=== PATIENT | female | born 1945 | race Caucasian/White ===

== ENCOUNTER → 2018-08-12 | Outpatient (CLI) | payer MEDICARE, OTHER ==
[~2018-08-12] MED LIST: ACETAMINOPHEN-1 EAC1 PO; ADVAIR HFA115 MCG/21 INH; ALBUTEROL2.5 MG/0.5 INH; ASPIRIN325 PO; ASPIRIN81 M2 PO; ATENOLOL 25 MG25 M1 PO; CEFACLOR ER500 MG PO; CENTRUM SILVER1 EAC1; CENTRUM SILVER1 EAC4 PO; CIPRO500 MG PO; COLACE100 MG PO; DELTASONE20 MG PO; DOXYCYCLINE 10100 MG PO; FLAGYL500 MG PO; FLUCONAZOLE 10100 MG PO; HYDROCODON-ACE1 EAC7 PO; HYDROCODONE-AP1 EAC6 PO; IPRAT-ALBUT 0.5-3 ML INH; LASIX 40 MG TAB40 M2 PO; LIPITOR10 MG PO; LOVASTAT20; NOLVADEX20 MG; NORCO 5-325 TA1 EACH PO; PERFOROMIS20 MCG/2 M IH; PERFOROMIS20 MCG/2 M INH; POTASSIUM20 PO; PREDNISONE 10 M10 MG PO; PULMICORT0.5 MG/2 M INH; REGLAN 10 MG TA10 M1 PO; SIMETHICON CHEW80 M1 PO; VITAMIN D10000 UNIT PO; ZANTAC 150MG T150 M1 PO; ZANTAC 150MG T150 MG PO; ZOFRAN 4 MG ORAL4 MG PO; ZYRTEC10 M2
[2018-08-12 08:45] LABS: CREATININE 0.9 mg/dL (0.6-1.3)
== END ==
LOC: M.LAB 08:19 → M.CT 09:00
DX: I71.4 Abdominal aortic aneurysm, without rupture (principal); J43.9 Emphysema, unspecified; R91.1 Solitary pulmonary nodule; J98.11 Atelectasis; I70.0 Atherosclerosis of aorta; I70.8 Atherosclerosis of other arteries; Z88.1 Allergy status to other antibiotic agents; Z88.8 Allergy status to other drugs, medicaments and biological substances; Z90.710 Acquired absence of both cervix and uterus

== ENCOUNTER 2018-12-18 10:06 | Inpatient (IN) | payer MEDICARE, OTHER ==
[~2018-12-18] VITALS: Ht 165.1 cm; Wt 53.5 kg
[2018-12-18 10:06] VITALS: BP 92/55
[2018-12-18] MEDS ORDERED: CENTRUM SILVER1 EAC4 PO (10:19)
[2018-12-18] MEDS ORDERED: ZANTAC 150MG T150 MG PO (10:20)
[2018-12-18 10:38] LABS: BE 10.4 mmol/L (-2 to +3); PCO2 49.9 mmHg (35.0-45.0); pH 7.471 (7.340-7.450)
[2018-12-18 10:40] LABS: PO2 53.7 mmHg (75.0-100.0)
[2018-12-18 10:43] LABS: HEMATOCRIT 36.2 % (37.0-47.0); HEMOGLOBIN 11.8 gm/dL (12.0-15.0); MCH 30.5 pg (26.0-34.0); MCHC 32.7 g/dL (28.0-37.0); MCV 93.2 fL (80.0-100.0); MPV 9.3 fl. (7.2-11.1); NUCLEATED RBCS 0 /100WBC; PLATELET COUNT* 208 thou/uL (150-400); RBC 3.88 mil/uL (4.20-5.00); RDW-CV 17.2 % (10.5-14.5); WBC 10.7 thou/uL (4.0-11.0)
[2018-12-18 10:51] LABS: ANION GAP 3 mmol/L (7-16); BUN 19 mg/dL (7-18); CALCIUM 11.4 mg/dL (8.5-10.1); CHLORIDE 97 mmol/L (98-107); CO2 36 mmol/L (21-32); CREATININE 0.8 mg/dL (0.6-1.3); GLUCOSE 93 mg/dL (70-99); POTASSIUM 3.7 mmol/L (3.5-5.1); SODIUM 136 mmol/L (136-145)
[2018-12-18 10:53] LABS: INR 1.2; PROTIME 12.1 Seconds (9.20-11.50)
[2018-12-18 10:58] LABS: ABSOLUTE LYMPHOCYTES 0.5 thou/uL (0.8-5.3); ABSOLUTE MONOCYTES 0.5 thou/uL (0.0-1.2); ABSOLUTE NEUTROPHILS 9.6 thou/uL (1.6-8.1); ANISOCYTOSIS 1+; PLATELET ESTIMATE ADEQUATE; POIKILOCYTOSIS 1+
[2018-12-18 11:02] LABS: ALBUMIN 2.4 g/dL (3.4-5.0); ALKALINE PHOSPHATASE 141 U/L (46-116); MAGNESIUM 1.6 mg/dL (1.8-2.4); NT-PRO BRAIN NAT PEPTIDE 8321 pg/mL (<300); SGOT 61 U/L (15-37); SGPT 22 U/L (30-65); TOTAL PROTEIN 8.6 g/dL (6.4-8.2); TROPONIN-I LEVEL <0.06 ng/mL (<0.06)
[2018-12-18 13:30] VITALS: BP 128/73
[2018-12-18 14:06] VITALS: BP 119/87
--- NOTE | 2018-12-18 16:30 | NUR ---
WOUND CARE NOTE: WAS REQUESTED TO SEE PATIENT BY PATIENT'S RN. PATIENT PRESENTS WITH UNSTAGEABLE PRESSURE ULCERS TO THE SACRUM AND COCCYX. FAMILY MEMBER IN ROOM ADMITS THAT PATIENT SITS A LOT OF THE TIME. FAMILY MEMBER STATES THEY CLEAN IT WITH PEROXIDE THEN APPLY NEOSPORIN AND COVER WITH A BANDAID. EDUCATED FAMILY MEMBER THAT THESE ARE CAUSED BY PRESSURE AND WE HAVE TO OFFLOAD TO ASSIST WITH WOUND HEALING, COMMUNICATED UNDERSTANDING BUT VOICED CONCERNS THAT IF SHE LAYS ON HER SIDE TOO LONG SHE WILL GET 'CLOGGED UP'. EDUCATED THAT WE COULD ROTATE FROM SIDE TO SIDE AND LIMIT TIME ON HER WOUNDS, COMMUNICATED UNDERSTANDING. SACRUM: UNSTAGEABLE PRESSURE ULCER MEASURING 1X2X0.1. 100% OF WOUND BED COVERED WITH YELLOW, MOIST, ADHERENT SLOUGH. HERI-WOUND WITH INFLAMMATION. COCCYX: UNSTAGEABLE PRESSURE ULCER MEASURING 1.5X2.5X0.1. 100% OF WOUND BED COVERED WITH YELLOW, MOIST, ADHERENT SLOUGH. HERI-WOUND WITH INFLAMMATION. APPLIED SKIN PREP TO HERI-WOUND. APPLIED AQUACEL AG TO WOUND BEDS AND COVERED WITH BORDERED FOAM. PATIENT TOLERATED DRESSING CHANGES WELL. RECOMMEND TURN Q2 HOURS-KEEP OFF WOUNDS ENCOURAGE GOOD NUTRTION/HYDRATION WAFFLE CUSHION WHEN IN CHAIR
--- NOTE | 2018-12-18 16:57 | 2DMMODE ---
[place] [address] 2 D/M-MODE ECHOCARDIOGRAM Name: MELY PALACIOS Room: [address] ADM IN [facility]#: [id number] Admission: 12/18/18 Attend Phys: Wilson Sands Discharge: Date of : 45 Date of Service: 12/18/18 1656 Report #: [id number] THIS REPORT FOR: //name// APPROVED REPORT Study performed: 12/18/2018 15:43:59 EXAM: Comprehensive 2D, Doppler, and color-flow Echocardiogram Patient Location: In-Patient Room #: Counts include 234 beds at the [facility] Status: routine BSA: 1.53 HR: 94 bpm BP: 119/87 mmHg Rhythm: NSR Other Information Study Quality: Good Indications COPD Dyspnea 2D Dimensions IVSd: 11.51 (7-11mm) LVOT Diam: 19.65 (18-24mm) LVDd: 35.09 mm PWd: 8.40 (7-11mm) Ascending Ao: 30.41 (22-36mm) LVDs: 23.41 (25-40mm) Aortic Root: 30.69 mm Aortic Valve AoV Peak Justice.: 1.07 m/s AO Peak Gr.: 4.57 mmHg LVOT Max P.39 mmHg AO Mean Gr.: 2.62 mmHg LVOT Mean P.61 mmHg LVOT Max V: 0.59 m/s AO V2 VTI: 16.64 cm LVOT Mean V: 0.35 m/s ANU (VTI): 1.80 cm2 LVOT V1 VTI: 9.86 cm Mitral Valve E/A Ratio: 0.78 MV Decel. Time: 163.68 ms MV E Max Justice.: 0.53 m/s MV PHT: 47.47 ms MVA (PHT): 4.63 [place] [address] 2 D/M-MODE ECHOCARDIOGRAM Name: MELY PALACIOS Room: [address] IN .R.#: [id number] Admission: 12/18/18 Attend Phys: Wilson Sands Discharge: Date of : 45 Date of Service: 12/18/18 1656 Report #: [id number] TDI E/Lateral E': 5.30 E/Medial E': 4.82 Medial E' Justice.: 0.11 m/s Lateral E' Justice.: 0.10 m/s Pulmonary Valve PV Peak Justice.: 0.86 m/s PV Peak Gr.: 2.98 mmHg Tricuspid Valve RAP Estimate: 15.00 mmHg TR Peak Gr.: 59.16 mmHg RVSP: 74.00 mmHg PA Pressure: 74.00 mmHg Left Ventricle The left ventricle is normal size. There is normal LV segmental wall motion. There is normal left ventricular wall thickness. Left ventricular systolic function is normal. The left ventricular ejection fraction is within the normal range. LVEF is 55%. Grade I - abnormal relaxation pattern. Right Ventricle Right ventricle is moderate to severely dilated. The right ventricular systolic function is normal. Atria The left atrium size is normal. Right atrium is severely dilated. Aortic Valve Mild aortic valve sclerosis. No aortic regurgitation is present. There is no aortic valvular stenosis. Mitral Valve The mitral valve is normal in structure. There is no mitral valve regurgitation noted. No evidence of mitral valve stenosis. Tricuspid Valve The tricuspid valve is normal in structure. Moderate to severe tricuspid regurgitation. Moderate pulmonary hypertension. Moderate to severe tricuspid regurgitation. Pulmonic Valve The pulmonary valve is normal in structure. There is no pulmonic valvular regurgitation[place] [address] 2 D/M-MODE ECHOCARDIOGRAM Name: MELY PALACIOS Room: [address] IN [facility].#: [id number] Admission: 12/18/18 Attend Phys: Wilson Sands Discharge: Date of : 45 Date of Service: 12/18/18 1656 Report #: [id number] The aortic root is normal in size. IVC is dilated and collapses <50% with inspiration. Pericardium There is no pericardial effusion. <Conclusion> The left ventricle is normal size. There is normal left ventricular wall thickness. Left ventricular systolic function is normal. The left ventricular ejection fraction is within the normal range. LVEF is 55%. Grade I - abnormal relaxation pattern. Right ventricle is moderate to severely dilated. The left atrium size is normal. Right atrium is severely dilated. Mild aortic valve sclerosis. No aortic regurgitation is present. There is no aortic valvular stenosis. The mitral valve is normal in structure. The tricuspid valve is normal in structure. Moderate to severe tricuspid regurgitation. Moderate pulmonary hypertension. IVC is dilated and collapses <50% with inspiration. There is no pericardial effusion. There is normal LV segmental wall motion. <ELECTRONICALLY SIGNED> By: Percy Griffiths MD, FACC 12/18/18 1656 55 55 Percy Griffiths MD, FACC /INF
--- NOTE | 2018-12-18 18:28 | NUR ---
VSS, ASSUMED CARE IN THE AM, ASSESSMENT PERFROEMD AND CHARTED, FALL PRECAUTIONS IN PLACE AND CALL LIGHT IN REACH, PT IS A&O4 PT IS ON 4L NC AND IS UP WITH TWO, PT IS A Q2 GARCÍAEN, FAMILY AT BEDSIDE AND HER GOAL IS TO IMPROVE BREATHING, HOURLY ROUNDS COMPLETED.
[2018-12-18 20:00] VITALS: BP 107/66
[2018-12-19] VITALS: BP 107/59
--- NOTE | 2018-12-19 03:46 | NUR ---
PT ALERT ORIENTED. UP TO BSC WITH ASSIST OF ONE. NPO AT NE. FOR CT AND BONE SCAN AND BX. O2 INITALLY AT 5 LITERS NC 88% TITRATED UP TO 6 LITERS NC. O2 SATS NOW IN MID 90S. TURN Q 2 HRS. NS W 40MEQ KCL NOT RUNNING AT INITAL ASSESSMENT. IVF NS 40KCL RUNNING AT 50MLS/HR. TELEMETRY SHOWS SR 1ST DEGREE AVB AT NE. SACRAL DRSG INTACT.
[2018-12-19 04:00] VITALS: BP 109/68
[2018-12-19 08:00] VITALS: BP 98/63
--- NOTE | 2018-12-19 09:20 | EKG ---
[place] [address] ELECTROCARDIOGRAM REPORT Name: MELY PALACIOS Room: [address] ADM IN M.R.#: [id number] Admission: 12/18/18 Attend Phys: Nikki Baer Discharge: Date of : 45 Report #: [id number] THIS REPORT FOR: //name// [facility] ED Test Date: 2018-12-18 Test Time: 10:21:50 Pat Name: MELY PALACIOS Department: Room: [address] Gender: F Manager Construction: : 1945 Requested By: Alice Blanchard Order Number: [id number] MD: Ra Mendez Measurements Intervals [place] Rate: 99 P: 81 KS: 152 QRS: 133 QRSD: 92 T: -39 QT: 360 QTc: 462 Interpretive Statements Sinus rhythm Right axis deviation Consider right atrial enlargement Incomplete right bundle-branch block Borderline T abnormalities, inferior leads Compared to ECG 05/10/2018 19:31:18 T-wave abnormality now present Electronically Signed On 12-19-2018 9:19:54 CDT by Ra Mendez [email or web address] <ELECTRONICALLY SIGNED> By: Ra Mendez MD, FACC 12/19/18 0919 1021 1021 Ra Mendez MD, [facility] /EPI
--- NOTE | 2018-12-19 12:19 | CON ---
[address] [address] CONSULTATION Name: MELY PALACIOS Room: [address] IN M.R.#: [id number] Admission: 12/18/18 Attend Phys: Nikki Baer Discharge: Date of : 45 Report #: [id number] THIS REPORT FOR: //name// CC: Gabriele Gloriajeannie Wilson Sands DATE OF SERVICE: 12/18/2018 INPATIENT CONSULTATION REASON FOR CONSULTATION: Lung mass. SUBJECTIVE: A 73-year-old female, who has been a heavy smoker, had COPD, presented because of shortness of breath. The patient had worsening difficulty breathing; however, she has been bedridden due to her severe COPD. She has been on 4 liters of oxygen. The patient denies any chest pain or nausea and vomiting. She has been having weight loss. Upon evaluation at the Emergency Room, the patient underwent CT angiogram, which showed left chest wall mass with destruction of the adjacent rib concerning of metastatic disease. The patient reported that she had breast cancer back 13 years ago, treated by Dr. Mathew. Underwent lumpectomy followed by chemotherapy and endocrine treatment for 7 years. The patient also had radiation prior to that. REVIEW OF SYSTEMS: All systems were reviewed. It was negative except the above. MEDICATIONS: Per admission list. ALLERGIES: PENICILLIN, ERYTHROMYCIN, AZITHROMYCIN, LEVOTHYROXINE. PAST MEDICAL HISTORY: History of breast cancer, COPD, hypertension, and peptic ulcer disease. PAST SURGICAL HISTORY: Appendectomy, lumpectomy, hemorrhoid surgery, , tonsillectomy. SOCIAL HISTORY: The patient is an active smoker, around less than 1 pack for more than 60 years. No alcohol or drug abuse. FAMILY HISTORY: Noncontributory. PHYSICAL EXAMINATION: VITAL SIGNS: Today, temperature 37.0, pulse 98, respirations 20, blood pressure is 119/87, SpO2 is 94% on 4 liters. GENERAL: The patient was lying in bed. She looked very cachectic and tired. LUNGS: [place] [id number] CONSULTATION Name: MELY PALACIOS Room: [address] IN [facility].#: [id number] Admission: 12/18/18 Attend Phys: Nikki Baer Discharge: Date of : 45 Report #: [id number] HEART: Regular rate and rhythm, S1, S2, within normal limits. ABDOMEN: Soft, nontender. EXTREMITIES: +2 edema bilaterally. LABORATORY DATA: Today, WBC 10.7, hemoglobin 11.8, platelets 208. Sodium is 137, potassium is 3.7, creatinine is 0.8, magnesium is 1.6. ALT is 61, AST 21, alk phos is 141. IMAGING: CT angiogram showed no PE, extensive emphysema, left chest wall mass with destruction of the adjacent rib and the anterior wall. ASSESSMENT AND PLAN: A 73-year-old female, who has been a heavy smoker, has a prior history of breast cancer as mentioned above. The patient is presenting with incidental findings of left chest wall mass, very suspicious of malignancy process. Differential diagnosis could be breast cancer or lung cancer, which is less likely. RECOMMENDATIONS: I will obtain a CT scan of the abdomen and pelvis ___without___ contrast and bone scan to staging. I discussed with the patient and she would like to know her diagnosis, whether it is lung versus breast. We will ask Interventional Radiology to evaluate for biopsy. The patient has been high risk since she has severe COPD. Plan was discussed with the patient. I would like also to obtain CA 27-29. <ELECTRONICALLY SIGNED> By: Larry Stcokton MD 12/19/18 1219 1721 [id number] Stockton MD /nt
[2018-12-19 12:22] VITALS: BP 115/77
--- NOTE | 2018-12-19 16:26 | NUR ---
SW met with pt, pt , pt dtr, pt son, pt friend. Pt alert, oriented. Pt lives at home with family and pt son is main caregiver during the day, pt provides assistance at night if needed. Pt continues to have oxygen and nebulizer through [employer]. Pt does not have hx of or SNF. SW to continue to follow to assist with safe dc planning.
[2018-12-19 16:50] VITALS: BP 109/66
--- NOTE | 2018-12-19 18:34 | NUR ---
VSS, ASSUMED CARE IN THE AM, ASSESSMENT PERFORMED AND CHARTED, FALL PRECAUTIONS IN PLACE AND CALL LIGHT IN REACH, PT IS ON 4 TO 6 L NC SHE IS UP WITH ONE TO BSC, TRACING SR.ST ON THE MONITOR, PT GOAL IS TO COMPLETE BONE SCAN, AND CT OF ABD, PT DENIES ANY PAIN IS A Q2 TURN, AND HAS PRESSUR ULCER ON BUTT, HOURLY ROUNDS COMPLETE, WILL FOLLOW WITH PLAN OF CARE,
[2018-12-19 20:10] VITALS: BP 118/73
[2018-12-20] VITALS (15 sets, daily range): BP systolic 128–154; BP diastolic 64–87
[2018-12-20 04:09] LABS: HEMATOCRIT 35.3 % (37.0-47.0); HEMOGLOBIN 11.2 gm/dL (12.0-15.0); MCH 30.4 pg (26.0-34.0); MCHC 31.6 g/dL (28.0-37.0); MCV 96.2 fL (80.0-100.0); MPV 9.2 fl. (7.2-11.1); RBC 3.67 mil/uL (4.20-5.00); RDW-CV 17.6 % (10.5-14.5)
[2018-12-20 04:45] LABS: INR 1.1; PROTIME 11.5 Seconds (9.20-11.50)
[2018-12-20 04:46] LABS: ALBUMIN 2.4 g/dL (3.4-5.0); CALCIUM 10.6 mg/dL (8.5-10.1); CREATININE 0.7 mg/dL (0.6-1.3); MAGNESIUM 1.7 mg/dL (1.8-2.4); POTASSIUM 3.7 mmol/L (3.5-5.1); TOTAL BILIRUBIN 0.4 mg/dL (<0.1-1.0); TOTAL PROTEIN 7.8 g/dL (6.4-8.2)
--- NOTE | 2018-12-20 05:06 | NUR ---
ASSUMED CARE OF PT AT 1900. PT IS ALERT AND ORIENTED. VSS. PERRLA. PT IS IN SINUS RTYHM ON THE TELEMETRY. PT IS RESTING COMFORTABLY IN BED. RESPIRATIONS ARE EVEN AND NONLABORED. WILL CONTINUE TO MONITOR PT.
--- NOTE | 2018-12-20 08:40 | CON ---
[address] [address] CONSULTATION Name: MELY PALACIOS Room: [address] ADM IN M.R.#: [id number] Admission: 12/18/18 Attend Phys: Nikki Baer Discharge: Date of : 45 Report #: [id number] THIS REPORT FOR: //name// CC: Larry Betancourt DO DATE OF SERVICE: 12/19/2018 PULMONARY CONSULTATION ATTENDING PHYSICIAN: Wilson Sands DO PRIMARY CARE PHYSICIAN: Gabriele Nino DO ONCOLOGIST: Larry Stockton MD LOCATION: She is located in room #223. INDICATION FOR CONSULTATION: Severe COPD, severe emphysema, and left chest wall mass, possible liver mass. HISTORY OF PRESENT ILLNESS: The patient is a 73-year-old female, current heavy smoker, presented to the Emergency Department yesterday via ambulance with complaints of shortness of breath. She has had cough with wheezing. Denies hemoptysis. She has been losing weight. She has been more short of breath. She has significant kyphosis. She basically is chair bound. She has to get up and have a help to go to the bathroom. She has had a pressure sore on her tailbone region for the last several weeks. She has had some lower leg swelling. CT of the chest did not reveal any pulmonary emboli. She has severe COPD with emphysema with significant emphysematous changes in the left chest wall mass around her left 8th and 9th rib with some lytic rib lesions and lingular consolidation. She may have a left chest wall biopsy. She has a remote history of breast CA from about 13 years ago with no evidence of recurrence at least at this time. Still smoking about a pack or two of cigarettes a day. PAST MEDICAL HISTORY: History of severe COPD. She has been oxygen dependent for the last 4-5 years. She has had chronic dyspnea and fatigue. She has kyphosis and restrictive lung disease. She thinks she has lost 3-4 inches in height over the last several years and she has had chronic abdominal pain, some fluid overload, and weakness noted. ALLERGIES: SHE HAS MULTIPLE ALLERGIES TO LEVOFLOXACIN, [place] [address] CONSULTATION Name: MELY PALACIOS Room: [address] IN [facility].#: [id number] Admission: 12/18/18 Attend Phys: Nikki Baer Discharge: Date of : 45 Report #: [id number] WITH ITCHING, AZITHROMYCIN GIVES HER NAUSEA, AND PENICILLIN GIVES HER NAUSEA. OUTPATIENT MEDICATIONS: At home, she is supposed to be on DuoNeb treatments 4 times a day followed by budesonide 0.5 mg b.i.d., was on a prednisone taper that was back in May and she had finished that taper. In the hospital, she is on IV Solu-Medrol and oral montelukast, also has received some pain medicines. PAST SURGICAL HISTORY: Again, prior lumpectomy in 2007 for breast cancer with adenocarcinoma and 1/5 lymph nodes positive. I believe she had chemotherapy and then was estrogen positive and received some hormonal therapy after that. 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 FAMILY HISTORY: Father with vascular disease and stroke. Mother had Alzheimer disease. SOCIAL HISTORY: Current 2-pack a day smoker for about 56 pack years. Denies any alcohol or illicit drug use. REVIEW OF SYSTEMS: A 14-point review of systems was attempted. EYES, EARS, NOSE AND THROAT: Occasional headaches. RESPIRATORY: COPD, smoking, and shortness of air. CARDIOVASCULAR: Denies chest pain or palpitations. GASTROINTESTINAL: Some abdominal pain and chest wall pain. GENITOURINARY: She has urgency at home. MUSCULOSKELETAL: Has back and chest wall pain. SKIN: No rash or bruising. NEUROLOGIC: Unremarkable 14-point review of systems was noted as above. CONSTITUTIONAL: She has lost weight also for constitutional, but no night sweats. PHYSICAL EXAMINATION: GENERAL: Thin, cachectic 73-year-old female, who is kyphotic in bed. She can barely sit up on her own. VITAL SIGNS: Blood pressure is 100/60 on no pressors, heart rate 88, respirations 16, temperature is 36.7, saturation on 4 liters is 89-90%, 6 liters she is 93. She is 5 feet 3 inches tall, weight 54 kilograms or 112 pounds, BMI is 19. NECK: Supple without nodes. Hypertrophied sternocleidomastoid muscle. No cervical or supraclavicular adenopathy. Pharynx is clear. CHEST: Shows some moderate kyphosis in cervical and thoracic area with limited range of motion of her neck. Diminished breath sounds, prolonged expiratory phase and expiratory wheezes noted bilaterally. She is hyperinflated. CARDIOVASCULAR: Shows diminished heart tones, regular rate and rhythm. Heart rate is 88. [address] [address] CONSULTATION Name: MELY PALACIOS Room: [address] IN [facility].#: [id number] Admission: 12/18/18 Attend Phys: Nikki Baer Discharge: Date of : 45 Report #: [id number] ABDOMEN: Soft. There may be some left chest wall tenderness on her left 8th and 9th ribs, just above her spleen, possible chest wall mass there. No ulcerating lesions noted. ABDOMEN: Soft and she has a pressure ulcer necrosis on her coccyx. EXTREMITIES: Show trace edema. No cyanosis or clubbing. NEUROLOGIC: Moves all fours albeit somewhat weakly to commands. LABORATORY DATA: From yesterday, hemoglobin is 12, white count is 10,700, and platelets are 208,000, normal differential. Sodium is 136, potassium is 3.7, bicarbonate is elevated at 36, BUN is 19, creatinine is 0.8, glucose 93, calcium is high at 11.4 and magnesium is 1.6, which is low. AST and ALT are slightly elevated at 61 and 22. Alkaline phosphatase elevated to 141. Anti-proBNP is elevated at 8321. Albumin is 2.4. ABGs on 4 liters showed pO2 of 54, pH 7.47, pCO2 is 49, bicarbonate is 36, sats 86%, and carboxyhemoglobin was elevated at 2.7% correlating with increased cigarette use at home. Chest x-ray, CT of the chest shows lingular consolidation, left chest wall lesion with lytic rib lesion around the left eighth and ninth ribs anteriorly with 2 x 7 cm longitudinal type lesion. Severe emphysema is noted on CT of the chest, no pulmonary emboli, possible right liver lesion. Repeat CT abdomen is pending today. IMPRESSION: 1. Most likely stage 4 carcinoma either recurrent breast carcinoma or primary lung carcinoma with a rib lesion. 2. Severe chronic obstructive pulmonary disease with emphysema, oxygen dependent. 3. Protein-calorie malnutrition and fatigue, chair bound. 4. Severe kyphoscoliosis with restrictive lung disease, CO2 retention. 5. History of breast cancer, adenocarcinoma with previous 1/5 lymph nodes positive, possible recurrence. PLAN: Await either CT biopsy of the chest wall or maybe liver biopsy of the right lobe of the liver if that ends up being positive on CT of the abdomen. Needed tissue diagnosis. I do not think she would tolerate bronchoscopy well. Keep her on steroids and oral bronchodilators, nebulizers, and see if we can improve her lung function. She does not seem interested in discontinuing smoking, although I have advised her to do so. We will continue current therapy, then Oncology will follow up after the biopsy, and see if she would either tolerate immunotherapy or possibly hormonal therapy for breast cancer. I will see where she goes from there, keep her on 4 liters, may have to recheck blood gas at some point in time to see how her CO2 retention is doing. Currently, she is a full code blue, may need to revisit that at some point in time. I think she would do poorly on the ventilator and may need to look into advance directives and durable power of commercial attorney. Prognosis quite guarded at this time even from her COPD alone. At some point in time, some spirometry and PFTs if she would cooperate. [address] [place] [address] CONSULTATION Name: MELY PALACIOS Room: [address] IN M.R.#: [id number] Admission: 12/18/18 Attend Phys: Nikki Baer Discharge: Date of : 45 Report #: [id number] Thanks again for allowing us to participate in this lady's care. We will follow up along with you. <ELECTRONICALLY SIGNED> By: Evert Stock MD 12/20/18 0840 1057 [id number] Stock MD /nt
--- NOTE | 2018-12-20 10:41 | NUR ---
ASSUMED PT CARE AT 0800, AOX4, UP SBA, O2 SAT 90'S 4L NC. TRACING SR ON TELE. PT DENIES PAIN. PT NPO FOR LIVER BIOPSY. LAST BM TODAY. IV ACCESS INTACT. VSS, AM ASSESSMENT CHARTED. HOURLY ROUNDING, CALL LIGHT WITHIN REACH. WILL CONTINUE TO MONITOR.
[2018-12-20 17:24] LABS: CALCIUM 11.5 mg/dL (8.5-10.1); MAGNESIUM 1.7 mg/dL (1.8-2.4); POTASSIUM 3.9 mmol/L (3.5-5.1)
[2018-12-21] VITALS: BP 133/86
[2018-12-21 04:00] VITALS: BP 149/85
--- NOTE | 2018-12-21 04:42 | NUR ---
ASSUMED CARE OF PT AT 1900. PT IS ALERT AND ORIENTED. VSS. PERRLA. NO COMPLAINTS OF PAIN. PT IS IN SINUS RYTHM ON THE TELEMETRY. PT IS RESTING COMFORTABLY IN BED. RESPIRATIONS ARE EVEN AND NONLABORED. WILL CONTINUE TO MONITOR PT.
[2018-12-21 04:44] LABS: HEMATOCRIT 37.1 % (37.0-47.0); HEMOGLOBIN 11.7 gm/dL (12.0-15.0); MCH 30.7 pg (26.0-34.0); MCHC 31.5 g/dL (28.0-37.0); MCV 97.3 fL (80.0-100.0); MPV 9.2 fl. (7.2-11.1); RBC 3.81 mil/uL (4.20-5.00); RDW-CV 17.9 % (10.5-14.5); WBC 7.9 thou/uL (4.0-11.0)
[2018-12-21 04:53] LABS: ALBUMIN 2.6 g/dL (3.4-5.0); CALCIUM 10.8 mg/dL (8.5-10.1); MAGNESIUM 1.6 mg/dL (1.8-2.4); POTASSIUM 3.8 mmol/L (3.5-5.1); TOTAL BILIRUBIN 0.5 mg/dL (<0.1-1.0); TOTAL PROTEIN 8.1 g/dL (6.4-8.2)
[2018-12-21 07:55] VITALS: BP 155/86
--- NOTE | 2018-12-21 09:20 | NUR ---
ASSUMED CARE OF PT AT 0730. PT RESTING IN BED WAITING FOR BREAKFAST. PT A&0X4, FORGETFUL AT TIMES. PT COMPLAINS OF GENERALIZED PAIN. TREATED WITH PRN TRAMADOL WITH RELIEF. PT TRACING SR ON THE SHERIFFS. ON 6L NC SAT UPPER 90'S. PT UP WITH 1 ASSIST TO BATHROOM. IVF. PT GOAL FOR TODAY IS REPLACE MAGNESIUM PER ELECTROLYTE PROTOCOL, TITRATE OXYGEN, WOUND CARE AND INCREASE ACTIVITY. AM ASSESSMENT CHARTED. MEDICATIONS PER JUL. PT REPOSITIONED EVERY 2 HOURS FOR COMFORT. HOURLY ROUNDING OBSERVED. BED IN LOW POSITION. BED ALARM IN PLACE. FALL PRECAUTIONS IN PLACE. CALL LIGHT WITHIN REACH. WILL CONTINUE PLAN OF CARE.
[2018-12-21 12:30] VITALS: BP 145/82
[2018-12-21] MEDS ORDERED: SINGULAIR 10 MG10 M1 PO (14:57)
[2018-12-21] MEDS ORDERED: PREDNISONE 20 M20 MG PO (14:59)
[2018-12-21] MEDS ORDERED: PEPCID20 MG PO (15:00)
[2018-12-21] MEDS ORDERED: IPRAT-ALBUT 0.5-3 ML INH (15:01)
[2018-12-21] MEDS ORDERED: ZANTAC 150MG T150 MG PO (15:03)
--- NOTE | 2018-12-21 15:15 | NUR ---
WAS ASKED TO SEE PT TO ARRANGE HH AND POSSIBLE O2 1OL CONCENTRATOR. DISCUSSED WITH DR ROBERTS. MET WITH PT, SPOUSE/MEHDI AND HIS SON TO DISCUSS. PT WANTING TO GO HOME TODAY. THEY WERE UNSURE WHAT LITER FLOW THEIR HOME CONCENTRATOR WENT TO. MEHDI WENT HOME TO CHECK AND IT WAS 5L. PT DR ROBERTS, NEEDED A 10L CONC HE O2 FLOW IS 4L NOW BUT WAS HIGHER EARLIER TODAY. WAS ABLE TO GET ORDER AND ARRANGE FOR 10L CONC TO BE DELIVERED BY HER DME CO[facility] TODAY. [facility]UAN ALB[facility] CALLED PT AND SPOUSE TO ARRANGE TIME TO DELIVER THIS AFTERNOON. PT HAS O2 TANK TO GET HOME WITH IN CAR. SPOUSE TO TAKE PT HOME. DISCUSSED HH OPTIONS, SHE HAD NO PREFERENCE AND STATED SHE HAD HEARD OF [facility], CALLED AND SET UP HH TO START TOMORROW THRU [facility]. PT CONFIRMED SHE HAS THE FOLLOWING EQUIPMENT AT HOME: O2, NEBULIZER, W/C, WALKER, CANE, BSC, O2 SAT MONITOR, AND RECLINER SHE SLEEPS IN. STATED DIDN'T WANT HOPSITAL BED. NO OTHER NEEDS ID'D. DISCUSSED WITH ENOC GONZALEZ
--- NOTE | 2018-12-21 17:57 | NUR ---
DISCHARGE ORDERS RECEIVED FOR PT TO BE DISCHARGED HOME WITH HOME HEALTH. DISCHARGE INSTRUCTIONS, CARE NOTES, SCRIPTS AND FOLLOW UP APPTS GIVEN TO PT. PT COMMUNICATES UNDERSTANDING OF DISCHARGE TEACHING. IV AND CHILD CARE NURSE REMOVED. PT DISCHARGED WITH ALL BELONGINGS AND PAPERWORK VIA WHEELCHAIR WITH NURSING STAFF TO FI[facility] OWN PERSONAL VEHICLE. WOUND CARE GIVEN AND DISCHARGE PHOTOS TAKEN AND PLACED IN CHART
--- NOTE | 2018-12-25 15:07 | PATH ---
[address] [address] PATHOLOGY RPT PROCEDURE Name: SAMANTHA PALACIOS Room: [address] IN M.R.#: [id number] Admission: 12/18/18 Date of : 45 Discharge: 12/21/18 Report #: [id number] Path Case #: [id number] [facility] Accession Number: [id number] . 01 Material submitted: . liver - LIVER BIOPSY . 01 Clinical history: . Liver mass 1.8 x 1.9 x 1.9 cm . 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 SEE COMMENT. LBQ/12/24/2018 . 02 Comment: Each of the cores shows liver involvement by infiltrating nests of malignant cells seen focally to show gland/duct formation and associated with a desmoplastic stromal response. The uninvolved liver tissue including portal tracts does not show dysplastic features. A panel of properly controlled immunohistochemical stains performed on A1 and A2 show the following results, supporting the diagnosis: . GCDFP Negative TTF-1 Negative Napsin Negative Estrogen receptor Negative Mammaglobin Negative CHAVEZ-3 Positive CK7 Negative CK20 Negative CDX2 Negative . These findings best support a breast ductal primary and lung and colorectal primaries are unlikely. Per discussion of the findings with Dr. Wilkins at approximately 0955 on 12/24/2018, it is determined that a progesterone receptor stain will also be attempted and will be the subject of an addendum report. Reviewed with Dr. Mahsa Hammonds who agrees with the diagnosis. (TRELL/db; 12/24/2018) . 02 Addendum: . At the request of Dr. Wilkins, a progesterone receptor immunohistochemical stain is performed (A2) and is negative. A keratin THOMAS stain is also performed and highlights the malignant cells [place] the [place] [address] PATHOLOGY RPT PROCEDURE Name: SAMANTHA PALACIOS Room: [address] DIS IN M.R.#: [id number] Admission: 12/18/18 Date of : 45 Discharge: 12/21/18 Report #: [id number] Path Case #: [id number] (TRELL:pit; 12/25/2018) . Professional services performed by [facility] at [address], [place] [address]. Technical services performed at [address] [place] [address], [address], [place] [address]. QTP/12/25/2018 Addendum Electronically Signed by Augustine Benton MD, Pathologist . 02 Electronically signed: . Augustine Benton MD, Pathologist NPI- [id number] . 01 Gross description: . Received in formalin labeled "Bebout, Samantha, liver BX," are 3 distinct needle cores of barth soft tissue ranging from 0.6-1.6 cm in length and less than 0.1 cm each in diameter. The specimen is submitted entirely in cassettes A1 through A3. (TSD; 12/20/2018) TOB/TOB . 02 Pathologist provided ICD-10: C22.9 . 02 CPT . 264214, I23921, J68281 Specimen Comment: A courtesy copy of this report has been sent to Specimen Comment: [phone], , , . Specimen Comment: Report sent to ,DR WILKINS,DR LOGAN / DR BARTLETT Performed at: [address] [facility] [address], [place], [place] [id number] MD Jose Perera MD Phone: [phone] Performed at: [address] [facility] [address], [place], [place] [id number] MD Augustine Benton MD Phone: [phone]
== END 2018-12-21 18:06 | disposition home health service (06) | DRG 291 ==
LOC: M.ERS 10:06 → M.TBA-ER 12:23 → M.2W 12:23
PROVIDERS: Family Medicine; Personal Emergency Response Attendant; ADMIT Internal Medicine
PROC: 0FB13ZX Excision of Right Lobe Liver, Percutaneous Approach, Diagnostic (ICD-10-PCS; principal; 2018-12-20)
DX: I11.0 Hypertensive heart disease with heart failure (principal); J96.01 Acute respiratory failure with hypoxia; E87.2 Acidosis; J84.9 Interstitial pulmonary disease, unspecified; E46 Unspecified protein-calorie malnutrition; Z68.1 Body mass index [BMI] 19.9 or less, adult; I50.33 Acute on chronic diastolic (congestive) heart failure; L89.150 Pressure ulcer of sacral region, unstageable; J45.909 Unspecified asthma, uncomplicated; R91.1 Solitary pulmonary nodule; F17.210 Nicotine dependence, cigarettes, uncomplicated; G89.29 Other chronic pain; R10.9 Unspecified abdominal pain; J43.9 Emphysema, unspecified; M41.9 Scoliosis, unspecified; R16.0 Hepatomegaly, not elsewhere classified; Z90.10 Acquired absence of unspecified breast and nipple; I25.2 Old myocardial infarction; Z85.3 Personal history of malignant neoplasm of breast; Z90.49 Acquired absence of other specified parts of digestive tract; Z88.1 Allergy status to other antibiotic agents; Z88.0 Allergy status to penicillin; Z99.81 Dependence on supplemental oxygen; Z92.21 Personal history of antineoplastic chemotherapy; Z82.49 Family history of ischemic heart disease and other diseases of the circulatory system; Z82.3 Family history of stroke; Z81.8 Family history of other mental and behavioral disorders; Z99.3 Dependence on wheelchair; Z79.899 Other long term (current) drug therapy